=== PATIENT | male | born 1965 | race Asian ===

== ENCOUNTER → 2016-09-26 | Outpatient (CLI) | payer OTHER ==
[~2016-09-26] MED LIST: ALPR-475 PO; AMLO10TA2 PO; ASPI-621 PO; CARV25TA12 PO; FLUO20CA8 PO; FURO-93 PO; FURO80TA77 PO; GABA300C10 PO; GLIP10TA13 PO; HYDR25TA6 PO; INSU100C SQ-INSULIN; INSU100V13 SQ; INSU300I SC; ISOS10TA2 PO; ISOS30TA8 PO; LEVO50TA5 PO; METF10002 PO; METO5TAB5 PO; NITR0.4T8 SL; ROSU5TAB PO; VALS40TA2 PO
== END | disposition home or self-care (01) ==
LOC: WOUND 15:12
PROVIDERS: ATTEND Podiatrist Foot & Ankle Surgery
DX: I87.332 Chronic venous hypertension (idiopathic) with ulcer and inflammation of left lower extremity (principal); E11.622 Type 2 diabetes mellitus with other skin ulcer; L97.821 Non-pressure chronic ulcer of other part of left lower leg limited to breakdown of skin; E11.22 Type 2 diabetes mellitus with diabetic chronic kidney disease; I13.0 Hypertensive heart and chronic kidney disease with heart failure and stage 1 through stage 4 chronic kidney disease, or unspecified chronic kidney disease; N18.4 Chronic kidney disease, stage 4 (severe); I50.9 Heart failure, unspecified; E78.5 Hyperlipidemia, unspecified; E03.9 Hypothyroidism, unspecified; F41.9 Anxiety disorder, unspecified; Z72.89 Other problems related to lifestyle; Z87.891 Personal history of nicotine dependence
CPT/HCPCS: 97597; 97598

== ENCOUNTER → 2016-11-13 | Outpatient (CLI) | payer OTHER ==
[~2016-11-13] MED LIST changes: +CALC0.25 PO; +PANT40TA5 PO
== END | disposition home or self-care (01) ==
LOC: CFH 08:54
PROVIDERS: ATTEND Internal Medicine
DX: J90 Pleural effusion, not elsewhere classified (principal); I51.7 Cardiomegaly; J98.11 Atelectasis
CPT/HCPCS: 71250

== ENCOUNTER → 2017-05-15 | Outpatient (CLI) | payer OTHER ==
[~2017-05-15] MED LIST changes: +NITR0.4T28 SL; -NITR0.4T8 SL
== END | disposition home or self-care (01) ==
LOC: EDSTATUS 05-06 09:30 → RAD 08:52
PROVIDERS: ATTEND Internal Medicine Cardiovascular Disease
DX: Z01.818 Encounter for other preprocedural examination (principal); M47.894 Other spondylosis, thoracic region; N18.6 End stage renal disease
CPT/HCPCS: 71020

== ENCOUNTER → 2017-05-15 | Outpatient (CLI) | payer OTHER | END | disposition home or self-care (01) | LOC: CVU 09:29 | PROVIDERS: ATTEND Internal Medicine Nephrology | DX: Z01.818 Encounter for other preprocedural examination (principal); I31.3 Pericardial effusion (noninflammatory); I07.1 Rheumatic tricuspid insufficiency; I74.5 Embolism and thrombosis of iliac artery; I13.2 Hypertensive heart and chronic kidney disease with heart failure and with stage 5 chronic kidney disease, or end stage renal disease; N18.6 End stage renal disease; I50.9 Heart failure, unspecified; E11.22 Type 2 diabetes mellitus with diabetic chronic kidney disease; Z79.899 Other long term (current) drug therapy | CPT/HCPCS: 93306; 93922; 93925; 93978 ==

== ENCOUNTER → 2017-08-26 | Outpatient (CLI) | payer OTHER | END | disposition home or self-care (01) | LOC: CFH 11:49 | PROVIDERS: ATTEND Internal Medicine Cardiovascular Disease | DX: I25.10 Atherosclerotic heart disease of native coronary artery without angina pectoris (principal); I25.5 Ischemic cardiomyopathy | CPT/HCPCS: 78452; 93017; A9502 ==

== ENCOUNTER → 2017-10-14 | Outpatient (CLI) | payer OTHER, MEDICARE ==
[~2017-10-14] MED LIST changes: +REGADENOSON 0.4 MG/5 ML SYRINGE ONE
== END ==
LOC: CFH 08:30
PROVIDERS: ATTEND Internal Medicine Cardiovascular Disease
DX: I25.5 Ischemic cardiomyopathy (principal); I25.10 Atherosclerotic heart disease of native coronary artery without angina pectoris
CPT/HCPCS: 78452; 93017; A9502; J2785

== ENCOUNTER 2018-01-08 10:08 | Day surgery (SDC) | payer OTHER, MEDICARE ==
[2018-01-06 11:15] VITALS: BP 162/91
[2018-01-06 11:19] LABS: MD NO
[2018-01-06 11:27] LABS: BASOPHILS # (AUTO) 0.04 x10^3/uL (0-0.1); BASOPHILS % (AUTO) 1 % (0-1); EOSINOPHILS # (AUTO) 0.29 x10^3/uL (0-0.4); EOSINOPHILS % (AUTO) 4 % (1-7); LYMPHOCYTES # (AUTO) 1.51 x10^3/uL (1-3.4); LYMPHOCYTES % (AUTO) 21 % (22-44); MEAN CORPUSCULAR HEMOGLOBIN 30.5 pg (27.5-34.5); MEAN CORPUSCULAR HGB CONC 32.9 g/dL (33.2-36.2); MEAN CORPUSCULAR VOLUME 92.8 fL (81-97); MEAN PLATELET VOLUME 8.7 fL (7.4-10.4); MONOCYTES # (AUTO) 1.03 x10^3/uL (0.2-0.8); MONOCYTES % (AUTO) 14 % (2-9); NEUTROPHILS # (AUTO) 4.43 x10^3/uL (1.8-6.8); NEUTROPHILS % (AUTO) 61 % (42-75); PLATELET COUNT 201 x10^3/uL (130-400); RED BLOOD COUNT 3.79 x10^6/uL (4.38-5.82)
[2018-01-06 11:31] LABS: ANION GAP 11 mmol/L (5-15); CALCIUM 7.8 mg/dL (8.5-10.1); CHLORIDE 97 mmol/L (98-107); CREATININE 7.08 mg/dL (0.7-1.3)
[~2018-01-08] VITALS: Ht 180.3 cm; Wt 97.0 kg
[~2018-01-08 10:08] MED LIST changes: +ALBU6.7H PO; +FURO20TA3 PO; +HYDR-3342 PO; +OLME40TA12 PO; -REGADENOSON 0.4 MG/5 ML SYRINGE ONE
[2018-01-08] MEDS ORDERED: ALBU8.5H8 INH (10:59)
[2018-01-08] MEDS ORDERED: FLUT200B INH (10:59)
[2018-01-08] MEDS ORDERED: CALC ACETATE PO (11:11)
[2018-01-08] MEDS ORDERED: BIVALIRUDIN 250 MG ONE (11:22)
[2018-01-08] MEDS ORDERED: VERAPAMIL 2.5 MG/ML, 2ML ONE (11:22)
[2018-01-08] MEDS ORDERED: MIDAZOLAM 1 MG/ML, 5ML ONE (11:22)
[2018-01-08] MEDS ORDERED: TICAGRELOR 90 MG TABLET ONE (11:22)
[2018-01-08] MEDS ORDERED: FENTANYL PF 100 MCG/2ML ONE (11:22)
[2018-01-08] MEDS ORDERED: LIDOCAINE-MPF 2%, 2ML ONE (11:23)
[2018-01-08] MEDS ORDERED: ARGATROBAN/NACL 50 MG/50 ML 50 ML IV ONE (11:30)
== END 2018-01-08 15:10 | disposition home or self-care (01) ==
LOC: CACL 10:08
PROVIDERS: ATTEND Internal Medicine Cardiovascular Disease
DX: I25.119 Atherosclerotic heart disease of native coronary artery with unspecified angina pectoris (principal); E11.9 Type 2 diabetes mellitus without complications; E78.2 Mixed hyperlipidemia; G47.33 Obstructive sleep apnea (adult) (pediatric); E11.22 Type 2 diabetes mellitus with diabetic chronic kidney disease; I13.2 Hypertensive heart and chronic kidney disease with heart failure and with stage 5 chronic kidney disease, or end stage renal disease; I50.9 Heart failure, unspecified; N18.6 End stage renal disease; Z79.82 Long term (current) use of aspirin; Z79.899 Other long term (current) drug therapy; Z98.890 Other specified postprocedural states
CPT/HCPCS: 36415; 80048; 85025; 93458; 99156; C1769; C1894; J2250; J3010; J3490; Q9967; J0583

== ENCOUNTER → 2018-01-20 | Outpatient (CLI) | payer OTHER, MEDICARE ==
[~2018-01-20] MED LIST changes: +ALBU8.5H8 INH; +CALC ACETATE PO; +FLUT200B INH; +OMNIPAQUE 350 MG/ML, 100ML BOTTLE ONE
== END | disposition home or self-care (01) ==
LOC: CFH 08:48
PROVIDERS: ATTEND Family Medicine
DX: I70.1 Atherosclerosis of renal artery (principal); N18.9 Chronic kidney disease, unspecified
CPT/HCPCS: 72191; Q9967

== ENCOUNTER → 2018-06-02 | Outpatient (CLI) | payer OTHER, MEDICARE ==
[~2018-06-02] MED LIST changes: -AMLO10TA2 PO; +AMLO10TA6 PO; -ASPI-621 PO; +ASPI81TA45 PO; -OMNIPAQUE 350 MG/ML, 100ML BOTTLE ONE
[2018-06-02 13:03] LABS: INTERNATIONAL NORMALIZED RATIO 3.17 (0.93-1.1); PROTHROMBIN TIME 32.1 Seconds (9.6-11.5)
== END | disposition home or self-care (01) ==
LOC: LAB 12:36
PROVIDERS: ATTEND Internal Medicine Cardiovascular Disease
DX: I48.91 Unspecified atrial fibrillation (principal); Z79.01 Long term (current) use of anticoagulants
CPT/HCPCS: 36415; 85610

== ENCOUNTER → 2018-06-23 | Outpatient (CLI) | payer OTHER, MEDICARE ==
[~2018-06-23] MED LIST changes: -AMLO10TA6 PO; +AMLO10TA8 PO
[2018-06-23 09:51] LABS: INTERNATIONAL NORMALIZED RATIO 1.13 (0.93-1.1); PROTHROMBIN TIME 11.9 Seconds (9.6-11.5)
== END | disposition home or self-care (01) ==
LOC: LAB 09:00
PROVIDERS: ATTEND Internal Medicine Cardiovascular Disease
DX: I48.91 Unspecified atrial fibrillation (principal); Z79.01 Long term (current) use of anticoagulants
CPT/HCPCS: 36415; 85610

== ENCOUNTER → 2018-07-21 | Outpatient (CLI) | payer OTHER, MEDICARE ==
[2018-07-21 10:53] LABS: INTERNATIONAL NORMALIZED RATIO 1.14 (0.93-1.1); PROTHROMBIN TIME 11.9 Seconds (9.6-11.5)
== END | disposition home or self-care (01) ==
LOC: LAB 10:24
PROVIDERS: ATTEND Internal Medicine Cardiovascular Disease
DX: I48.91 Unspecified atrial fibrillation (principal); Z79.01 Long term (current) use of anticoagulants
CPT/HCPCS: 36415; 85610

== ENCOUNTER → 2018-07-28 | Outpatient (CLI) | payer OTHER ==
[2018-07-28 09:42] LABS: INTERNATIONAL NORMALIZED RATIO 2.12 (0.93-1.1); PROTHROMBIN TIME 21.6 Seconds (9.6-11.5)
== END | disposition home or self-care (01) ==
LOC: LAB 09:15
PROVIDERS: ATTEND Internal Medicine Cardiovascular Disease
DX: I48.91 Unspecified atrial fibrillation (principal); Z79.01 Long term (current) use of anticoagulants
CPT/HCPCS: 36415; 85610

== ENCOUNTER → 2018-08-11 | Outpatient (CLI) | payer OTHER ==
[2018-08-11 11:12] LABS: INTERNATIONAL NORMALIZED RATIO 1.45 (0.93-1.1)
== END | disposition home or self-care (01) ==
LOC: LAB 10:13
PROVIDERS: ATTEND Internal Medicine Cardiovascular Disease
DX: I48.91 Unspecified atrial fibrillation (principal); Z79.01 Long term (current) use of anticoagulants
CPT/HCPCS: 36415; 85610

== ENCOUNTER → 2018-08-14 | Outpatient (CLI) | payer OTHER ==
[2018-08-14 15:49] LABS: INTERNATIONAL NORMALIZED RATIO 1.82 (0.93-1.1); PROTHROMBIN TIME 18.7 Seconds (9.6-11.5)
== END | disposition home or self-care (01) ==
LOC: LAB 15:20
PROVIDERS: ATTEND Internal Medicine Cardiovascular Disease
DX: I48.91 Unspecified atrial fibrillation (principal); Z79.01 Long term (current) use of anticoagulants
CPT/HCPCS: 36415; 85610

== ENCOUNTER → 2018-09-03 | Outpatient (CLI) | payer OTHER ==
[2018-09-03 10:00] LABS: INTERNATIONAL NORMALIZED RATIO 1.86 (0.93-1.1); PROTHROMBIN TIME 19.1 Seconds (9.6-11.5)
== END | disposition home or self-care (01) ==
LOC: LAB 09:30
PROVIDERS: ATTEND Internal Medicine Cardiovascular Disease
DX: I48.91 Unspecified atrial fibrillation (principal); Z79.01 Long term (current) use of anticoagulants
CPT/HCPCS: 36415; 85610

== ENCOUNTER → 2018-09-17 | Outpatient (CLI) | payer OTHER ==
[2018-09-17 10:38] LABS: PROTHROMBIN TIME 30.2 Seconds (9.6-11.5)
== END | disposition home or self-care (01) ==
LOC: LAB 10:02
PROVIDERS: ATTEND Internal Medicine Cardiovascular Disease
DX: I48.91 Unspecified atrial fibrillation (principal); Z79.01 Long term (current) use of anticoagulants
CPT/HCPCS: 36415; 85610

== ENCOUNTER → 2018-10-22 | Outpatient (CLI) | payer OTHER, MEDICARE ==
[2018-10-22 10:50] LABS: INTERNATIONAL NORMALIZED RATIO 1.89 (0.93-1.1); PROTHROMBIN TIME 19.4 Seconds (9.6-11.5)
== END | disposition home or self-care (01) ==
LOC: LAB 10:24
PROVIDERS: ATTEND Internal Medicine Cardiovascular Disease
DX: I48.91 Unspecified atrial fibrillation (principal); Z79.01 Long term (current) use of anticoagulants
CPT/HCPCS: 36415; 85610

== ENCOUNTER 2019-03-20 16:32 | Emergency (ER) | payer OTHER, MEDICARE ==
[~2019-03-20] VITALS: Ht 177.8 cm; Wt 100.0 kg
[~2019-03-20 16:32] MED LIST changes: -ALBU6.7H PO; +ALBU6.7H8 PO; -ALPR-475 PO; +ALPR0.5T7 PO; +WARFARIN SODIUM PO
[2019-03-20] MEDS ORDERED: ONDANSETRON ODT 4 MG PO ONE (17:00)
[2019-03-20] MEDS ORDERED: ONDANSETRON ODT 4 MG ONE (17:03)
--- NOTE | 2019-03-20 17:09 | NUR ---
PT A&OX4, RESP EVEN & UNLABORED, SPEECH CLEAR, SKIN WNL. C/O N/V, WEAKNESS X 3 DAYS. NO MEDS TAKEN FOR SX. 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 LAST BM: TODAY. DENIES DIARRHEA. SPOUSE AT BS. LABS DRAWN. ZOFRAN GIVEN PER EMAR.
[2019-03-20 17:19] LABS: BASOPHILS # (AUTO) 0.04 x10^3/uL (0-0.1); BASOPHILS % (AUTO) 1 % (0-1); EOSINOPHILS # (AUTO) 0.19 x10^3/uL (0-0.4); EOSINOPHILS % (AUTO) 3 % (1-7); LYMPHOCYTES # (AUTO) 1.29 x10^3/uL (1-3.4); LYMPHOCYTES % (AUTO) 20 % (22-44); MD NO; MEAN CORPUSCULAR HEMOGLOBIN 30.7 pg (27.5-34.5); MEAN CORPUSCULAR HGB CONC 32.4 g/dL (33.2-36.2); MEAN CORPUSCULAR VOLUME 94.7 fL (81-97); MEAN PLATELET VOLUME 9.5 fL (7.4-10.4); MONOCYTES # (AUTO) 0.98 x10^3/uL (0.2-0.8); MONOCYTES % (AUTO) 15 % (2-9); NEUTROPHILS # (AUTO) 4.12 x10^3/uL (1.8-6.8); NEUTROPHILS % (AUTO) 62 % (42-75); PLATELET COUNT 144 x10^3/uL (130-400); RED BLOOD COUNT 3.66 x10^6/uL (4.38-5.82); RED CELL DISTRIBUTION WIDTH 15.6 % (9.4-14.8)
[2019-03-20 17:30] LABS: ALANINE AMINOTRANSFERASE 15 U/L (12-78); ANION GAP 11 mmol/L (5-15); CALCIUM 7.5 mg/dL (8.5-10.1); CHLORIDE 97 mmol/L (98-107)
[2019-03-20 17:33] LABS: ALKALINE PHOSPHATASE 159 U/L (45-117); BILIRUBIN,TOTAL 0.5 mg/dL (0.2-1.0); TOTAL PROTEIN 6.8 g/dL (6.4-8.2)
--- NOTE | 2019-03-20 17:45 | NUR ---
PT REPORT TO BREAK RN: TEAGAN Mahajan PT CARE TRANSFERRED.
[2019-03-20] MEDS ORDERED: CALC667C PO (18:11)
[2019-03-20 18:13] LABS: INTERNATIONAL NORMALIZED RATIO 1.47 (0.93-1.1); PROTHROMBIN TIME 15.2 Seconds (9.6-11.5)
[2019-03-20] MEDS ORDERED: WARF-36 PO (18:13)
[2019-03-20] MEDS ORDERED: SUCR500T PO (18:14)
[2019-03-20] MEDS ORDERED: ROSU40TA PO (18:17)
[2019-03-20 19:29] VITALS: BP 145/67
== END 2019-03-20 19:38 | disposition home or self-care (01) ==
LOC: ED 17:42
DX: R11.2 Nausea with vomiting, unspecified (principal); E11.22 Type 2 diabetes mellitus with diabetic chronic kidney disease; I13.0 Hypertensive heart and chronic kidney disease with heart failure and stage 1 through stage 4 chronic kidney disease, or unspecified chronic kidney disease; N18.9 Chronic kidney disease, unspecified; I50.9 Heart failure, unspecified; E03.9 Hypothyroidism, unspecified; I25.2 Old myocardial infarction
CPT/HCPCS: 36415; 80053; 83690; 85025; 85610; 99283; Q0162

== ENCOUNTER 2019-07-26 08:01 | Day surgery (SDC) | payer OTHER, MEDICARE ==
[~2019-07-26] VITALS: Ht 177.8 cm; Wt 107.8 kg
[~2019-07-26 08:01] MED LIST changes: +BUPIVACAINE/PF 0.5% ONE; +CALC667C PO; +EPINEPHRINE 1 MG/ML, 1ML ONE; +FLUO20CA23 PO; -FLUO20CA8 PO; +GUAI200T37 PO; +ONDA4TAB7 PO; +OSEL30CA2 PO; +PRED10TA14 PO; +ROSU40TA PO; +SUCR500T PO; +WARF-36 PO
[2019-07-26] MEDS ORDERED: SODIUM CHLORIDE 0.9% 1,000 ML IV SCH (08:24)
[2019-07-26] MEDS ORDERED: FENTANYL PF 100 MCG/2ML ONE ×2 (08:24→11:45)
[2019-07-26] MEDS ORDERED: MIDAZOLAM 1 MG/ML, 2ML ONE (08:24)
[2019-07-26] MEDS ORDERED: GLYCOPYRROLATE 0.2MG/1ML, 5ML ONE (08:42)
[2019-07-26] MEDS ORDERED: SUCCINYLCHOLINE 20 MG/ML, 10ML ONE (08:42)
[2019-07-26] MEDS ORDERED: ROCURONIUM 10MG/ML,5ML ONE (08:42)
[2019-07-26] MEDS ORDERED: PROPOFOL 10 MG/ML, 20ML ONE (08:42)
[2019-07-26] MEDS ORDERED: NEOSTIGMINE 1 MG/ML, 10ML ONE (08:42)
[2019-07-26] MEDS ORDERED: ONDANSETRON 2MG/ML, 2ML ONE (08:42)
[2019-07-26] MEDS ORDERED: CEFAZOLIN 1,000 MG ONE (08:42)
[2019-07-26] MEDS ORDERED: DEXAMETHASONE 4 MG/ML, 1ML ONE (08:42)
[2019-07-26 08:51] VITALS: BP 149/78
[2019-07-26] MEDS ORDERED: PLEASE ENTER HEIGHT AND WEIGHT MC SCH (09:00)
[2019-07-26 09:37] LABS: ALANINE AMINOTRANSFERASE 23 U/L (12-78); ALBUMIN 3.8 g/dL (3.4-5.0); ANION GAP 8 mmol/L (5-15); CALCIUM 9.2 mg/dL (8.5-10.1); CHLORIDE 98 mmol/L (98-107); CREATININE 8.02 mg/dL (0.7-1.3)
[2019-07-26 09:39] LABS: ALKALINE PHOSPHATASE 263 U/L (45-117); BILIRUBIN,TOTAL 0.9 mg/dL (0.2-1.0); TOTAL PROTEIN 8.3 g/dL (6.4-8.2)
[2019-07-26] MEDS ORDERED: LIDOCAINE 2% 100MG/5ML SYRINGE ONE (10:34)
[2019-07-26] MEDS ORDERED: ACETAMINOPHEN 325 MG TABLET PO PRN (11:00)
[2019-07-26] MEDS ORDERED: HYDROmorphone 2 MG/ML, 1ML IVPush PRN (11:00)
[2019-07-26] MEDS ORDERED: ONDANSETRON 2MG/ML, 2ML IV PRN (11:00)
[2019-07-26] MEDS ORDERED: PROMETHAZINE 25 MG/ML, 1ML IV PRN (11:00)
[2019-07-26] MEDS ORDERED: PROMETHAZINE 25 MG SUPP PR PRN (11:00)
[2019-07-26] MEDS ORDERED: ONDANSETRON ODT 8 MG PO PRN (11:00)
[2019-07-26] MEDS ORDERED: hydrALAzine 20 MG/ML, 1ML IV PRN (11:00)
[2019-07-26] MEDS ORDERED: OXYcodone 5 MG/5 ML ORAL.SOL UDC PO PRN (11:00)
[2019-07-26] MEDS ORDERED: NALOXONE 0.4 MG/ML, 1ML ONE (11:16)
[2019-07-26] MEDS ORDERED: ACETAMINOPHEN 650 MG/20.3 ML UDC ONE (11:45)
[2019-07-26] MEDS: FENTANYL PF 100 MCG/2ML IV PRN ×2 (11:53→12:07)
[2019-07-26] MEDS ORDERED: hydrALAzine 20 MG/ML, 1ML ONE (11:55)
[2019-07-26] MEDS ORDERED: OXYcodone 5 MG/5 ML ORAL.SOL UDC ONE (11:55)
== END 2019-07-26 15:35 | disposition home or self-care (01) ==
LOC: OUT 08:01
PROVIDERS: ATTEND Surgery Vascular Surgery
DX: T85.611A Breakdown (mechanical) of intraperitoneal dialysis catheter, initial encounter (principal); I13.2 Hypertensive heart and chronic kidney disease with heart failure and with stage 5 chronic kidney disease, or end stage renal disease; E11.22 Type 2 diabetes mellitus with diabetic chronic kidney disease; N18.6 End stage renal disease; I50.9 Heart failure, unspecified; Z88.8 Allergy status to other drugs, medicaments and biological substances; Z87.891 Personal history of nicotine dependence; Z79.899 Other long term (current) drug therapy; Z79.01 Long term (current) use of anticoagulants; Z99.2 Dependence on renal dialysis
CPT/HCPCS: 36415; 49422; 80053; J0171; J0330; J0360; J0690; J1100; J2250; J2310; J2405; J2704; J3010; J7030; J2710

== ENCOUNTER 2019-10-26 13:22 | Outpatient (CLI) | payer OTHER, MEDICARE ==
[~2019-10-26 13:22] MED LIST changes: -BUPIVACAINE/PF 0.5% ONE; -EPINEPHRINE 1 MG/ML, 1ML ONE
== END 2019-10-26 23:59 | disposition home or self-care (01) ==
LOC: CVU 13:22
PROVIDERS: ATTEND Internal Medicine Cardiovascular Disease
DX: I08.8 Other rheumatic multiple valve diseases (principal); I31.3 Pericardial effusion (noninflammatory); J90 Pleural effusion, not elsewhere classified; N18.9 Chronic kidney disease, unspecified; E11.9 Type 2 diabetes mellitus without complications; I50.22 Chronic systolic (congestive) heart failure; Z99.2 Dependence on renal dialysis
CPT/HCPCS: 93306

== ENCOUNTER 2020-01-11 19:22 | Emergency (ER) | payer OTHER, MEDICARE ==
[~2020-01-11] VITALS: Ht 177.8 cm; Wt 105.6 kg
[2020-01-11 19:24] VITALS: BP 158/78
--- NOTE | 2020-01-11 20:07 | NUR ---
Left 2nd toe wound cleansed with iodine/saline. then wound (blood blister) lanced by provider then triple abx applied followed by bandaids. Provided with wound care supplies for home as well as instructions on what to watch for
== END 2020-01-11 20:09 | disposition home or self-care (01) ==
LOC: ED 20:07
DX: M79.672 Pain in left foot (principal); E11.9 Type 2 diabetes mellitus without complications; I25.2 Old myocardial infarction; I25.10 Atherosclerotic heart disease of native coronary artery without angina pectoris; I50.9 Heart failure, unspecified; E03.9 Hypothyroidism, unspecified; Z86.39 Personal history of other endocrine, nutritional and metabolic disease
CPT/HCPCS: 10060; 99283

== ENCOUNTER 2020-03-30 13:00 | Emergency (ER) | payer MEDICARE, OTHER ==
[~2020-03-30] VITALS: Ht 177.8 cm; Wt 110.5 kg
[~2020-03-30 13:00] MED LIST changes: +AMLO-211 PO; -AMLO10TA8 PO; -PANT40TA5 PO; +PANT40TA6 PO
[2020-03-30 15:28] LABS: BASOPHILS % (AUTO) 1 % (0-1); EOSINOPHILS % (AUTO) 12 % (1-7); LYMPHOCYTES % (AUTO) 19 % (22-44); MEAN CORPUSCULAR HEMOGLOBIN 29.9 pg (27.5-34.5); MEAN CORPUSCULAR HGB CONC 32.5 g/dL (33.2-36.2); MEAN PLATELET VOLUME 9.3 fL (7.4-10.4); MONOCYTES % (AUTO) 12 % (2-9); NEUTROPHILS % (AUTO) 56 % (42-75); PLATELET COUNT 163 x10^3/uL (130-400); RED BLOOD COUNT 3.37 x10^6/uL (4.38-5.82); RED CELL DISTRIBUTION WIDTH 16.2 % (9.4-14.8)
[2020-03-30 15:35] LABS: ALBUMIN 3.7 g/dL (3.4-5.0); ANION GAP 5 mmol/L (5-15); CALCIUM 8.8 mg/dL (8.5-10.1); CHLORIDE 100 mmol/L (98-107); CREATININE 5.63 mg/dL (0.7-1.3)
[2020-03-30 15:51] LABS: ALANINE AMINOTRANSFERASE 16 U/L (12-78); ALKALINE PHOSPHATASE 233 U/L (45-117); BILIRUBIN,TOTAL 0.6 mg/dL (0.2-1.0); TOTAL PROTEIN 8.4 g/dL (6.4-8.2)
[2020-03-30 15:58] LABS: MD SCAN
--- NOTE | 2020-03-30 17:31 | NUR ---
PT AMBULATED BACK TO ROOM WITH . PT RESTING ON GURNEY, NO COMPLAINTS AT THIS TIME. BLANKET OFFERED. PT ON CONTINUOUS PULSE OX AND CARDIAC MONITORING.
--- NOTE | 2020-03-30 18:54 | NUR ---
REPORT GIVEN TO HARSHAD BARRIOS.
--- NOTE | 2020-03-30 18:59 | NUR ---
Pt traveled to IR with tech
[2020-03-30 20:32] VITALS: BP 159/67
--- NOTE | 2020-03-30 20:34 | NUR ---
D/c instructions discussed with pt and spouse. Verbalize understanding. State pt will be attending dialysis tomorrow, will f/u with renal team and will return to ED with worsening sx. Ambulating at baseline, steady gait
== END 2020-03-30 20:34 | disposition home or self-care (01) ==
LOC: ED 17:54
DX: I13.10 Hypertensive heart and chronic kidney disease without heart failure, with stage 1 through stage 4 chronic kidney disease, or unspecified chronic kidney disease (principal); E11.22 Type 2 diabetes mellitus with diabetic chronic kidney disease; N18.9 Chronic kidney disease, unspecified; R18.8 Other ascites; R07.89 Other chest pain; I25.2 Old myocardial infarction; I25.10 Atherosclerotic heart disease of native coronary artery without angina pectoris; Z99.2 Dependence on renal dialysis
CPT/HCPCS: 36415; 49083; 71045; 80053; 83880; 85025; 88112; 88305; 93005; 99285

== ENCOUNTER → 2020-06-08 | Outpatient (CLI) | payer MEDICARE, OTHER ==
[2020-06-08 14:56] LABS: BASOPHILS % (AUTO) 1 % (0-1); EOSINOPHILS % (AUTO) 5 % (1-7); LYMPHOCYTES % (AUTO) 19 % (22-44); MEAN CORPUSCULAR HEMOGLOBIN 30.2 pg (27.5-34.5); MEAN CORPUSCULAR HGB CONC 32.5 g/dL (33.2-36.2); MEAN PLATELET VOLUME 8.7 fL (7.4-10.4); MONOCYTES % (AUTO) 12 % (2-9); NEUTROPHILS % (AUTO) 64 % (42-75); PLATELET COUNT 147 x10^3/uL (130-400); RED BLOOD COUNT 3.37 x10^6/uL (4.38-5.82); RED CELL DISTRIBUTION WIDTH 14.7 % (9.4-14.8)
[2020-06-08 15:02] LABS: MD NO
[2020-06-08 15:07] LABS: ALANINE AMINOTRANSFERASE 20 U/L (12-78); ALBUMIN 3.7 g/dL (3.4-5.0); ANION GAP 8 mmol/L (5-15); CALCIUM 9.3 mg/dL (8.5-10.1); CHLORIDE 99 mmol/L (98-107); CREATININE 5.14 mg/dL (0.7-1.3)
[2020-06-08 15:09] LABS: ALKALINE PHOSPHATASE 210 U/L (45-117); BILIRUBIN,TOTAL 0.7 mg/dL (0.2-1.0); TOTAL PROTEIN 8.3 g/dL (6.4-8.2)
== END | disposition home or self-care (01) ==
LOC: RAD 14:01
PROVIDERS: ATTEND Internal Medicine Geriatric Medicine
DX: R18.8 Other ascites (principal)
CPT/HCPCS: 36415; 80053; 85025

== ENCOUNTER 2020-06-09 08:40 | Outpatient (CLI) | payer OTHER, MEDICARE ==
[2020-06-09] MEDS ORDERED: LIDOCAINE 1%, 10ML ONE (09:16)
== END 2020-06-09 23:59 | disposition home or self-care (01) ==
LOC: RAD 08:40
PROVIDERS: ATTEND Internal Medicine Geriatric Medicine
DX: R18.8 Other ascites (principal); E11.22 Type 2 diabetes mellitus with diabetic chronic kidney disease; I12.0 Hypertensive chronic kidney disease with stage 5 chronic kidney disease or end stage renal disease; N18.6 End stage renal disease; E78.5 Hyperlipidemia, unspecified; E66.9 Obesity, unspecified; Z68.34 Body mass index [BMI] 34.0-34.9, adult; Z79.890 Hormone replacement therapy; Z79.899 Other long term (current) drug therapy; Z83.3 Family history of diabetes mellitus; Z82.49 Family history of ischemic heart disease and other diseases of the circulatory system; Z84.1 Family history of disorders of kidney and ureter; Z82.3 Family history of stroke
CPT/HCPCS: 49083; 82042; 82150; 84157; 89051; J3490

== ENCOUNTER 2020-07-06 08:57 | Outpatient (CLI) | payer OTHER, MEDICARE ==
[2020-07-06] MEDS ORDERED: LIDOCAINE 1%, 10ML ONE (09:45)
== END 2020-07-06 23:59 | disposition home or self-care (01) ==
LOC: RAD 08:57
PROVIDERS: ATTEND Internal Medicine Geriatric Medicine
DX: R18.8 Other ascites (principal); I12.0 Hypertensive chronic kidney disease with stage 5 chronic kidney disease or end stage renal disease; N18.6 End stage renal disease; E78.5 Hyperlipidemia, unspecified; E66.9 Obesity, unspecified; Z88.8 Allergy status to other drugs, medicaments and biological substances; Z99.2 Dependence on renal dialysis; Z79.82 Long term (current) use of aspirin; Z79.899 Other long term (current) drug therapy; Z72.89 Other problems related to lifestyle; Z98.890 Other specified postprocedural states; Z68.30 Body mass index [BMI] 30.0-30.9, adult; Z82.49 Family history of ischemic heart disease and other diseases of the circulatory system; Z83.3 Family history of diabetes mellitus
CPT/HCPCS: 49083; 87015; 87070; 87075; 87116; 87205; 87206; 88112; 88305; 88341; 88342; J3490

== ENCOUNTER → 2020-07-06 | Outpatient (CLI) | payer OTHER, MEDICARE | END | disposition home or self-care (01) | LOC: LAB 10:42 | PROVIDERS: ATTEND Urology | DX: Z12.5 Encounter for screening for malignant neoplasm of prostate (principal) | CPT/HCPCS: 36415; 84153; G0103 ==

== ENCOUNTER → 2020-08-01 | Outpatient (CLI) | payer OTHER, MEDICARE ==
[~2020-08-01] MED LIST changes: +LIDOCAINE 1%, 10ML ONE
== END | disposition home or self-care (01) ==
LOC: RAD 10:15
PROVIDERS: ATTEND Internal Medicine Geriatric Medicine
DX: R18.8 Other ascites (principal); N18.6 End stage renal disease; I13.2 Hypertensive heart and chronic kidney disease with heart failure and with stage 5 chronic kidney disease, or end stage renal disease; E11.22 Type 2 diabetes mellitus with diabetic chronic kidney disease; E78.5 Hyperlipidemia, unspecified; Z98.890 Other specified postprocedural states; E66.9 Obesity, unspecified; Z68.33 Body mass index [BMI] 33.0-33.9, adult; Z88.8 Allergy status to other drugs, medicaments and biological substances; Z79.899 Other long term (current) drug therapy; Z99.2 Dependence on renal dialysis; Z79.82 Long term (current) use of aspirin; Z72.89 Other problems related to lifestyle
CPT/HCPCS: 36415; 49083; 86480; 87015; 87070; 87116; 87205; 87206; 88112; 88305; J3490

== ENCOUNTER 2020-08-03 14:16 | Outpatient (CLI) | payer OTHER, MEDICARE ==
[~2020-08-03 14:16] MED LIST changes: -LIDOCAINE 1%, 10ML ONE
== END 2020-08-03 23:59 | disposition home or self-care (01) ==
LOC: CVU 14:16 → RAD 23:59
PROVIDERS: ATTEND Internal Medicine Geriatric Medicine
DX: I08.8 Other rheumatic multiple valve diseases (principal); I11.9 Hypertensive heart disease without heart failure; E78.5 Hyperlipidemia, unspecified; I12.9 Hypertensive chronic kidney disease with stage 1 through stage 4 chronic kidney disease, or unspecified chronic kidney disease; N18.6 End stage renal disease; Z87.891 Personal history of nicotine dependence
CPT/HCPCS: 71046; 93306

== ENCOUNTER → 2020-11-07 | Outpatient (CLI) | payer MEDICARE, OTHER | END | disposition home or self-care (01) | LOC: WOUND 12:28 | PROVIDERS: ATTEND Nurse Practitioner Family | DX: E11.622 Type 2 diabetes mellitus with other skin ulcer (principal); L89.96 Pressure-induced deep tissue damage of unspecified site; L97.811 Non-pressure chronic ulcer of other part of right lower leg limited to breakdown of skin; E11.621 Type 2 diabetes mellitus with foot ulcer; L97.511 Non-pressure chronic ulcer of other part of right foot limited to breakdown of skin; S80.821A Blister (nonthermal), right lower leg, initial encounter; H91.92 Unspecified hearing loss, left ear; R26.9 Unspecified abnormalities of gait and mobility; E03.9 Hypothyroidism, unspecified; F41.9 Anxiety disorder, unspecified; E11.40 Type 2 diabetes mellitus with diabetic neuropathy, unspecified; I25.10 Atherosclerotic heart disease of native coronary artery without angina pectoris; E11.22 Type 2 diabetes mellitus with diabetic chronic kidney disease; I13.2 Hypertensive heart and chronic kidney disease with heart failure and with stage 5 chronic kidney disease, or end stage renal disease; I50.42 Chronic combined systolic (congestive) and diastolic (congestive) heart failure; N18.6 End stage renal disease; E78.2 Mixed hyperlipidemia; I48.0 Paroxysmal atrial fibrillation; Z99.2 Dependence on renal dialysis; Z79.4 Long term (current) use of insulin; Z87.891 Personal history of nicotine dependence; Z79.82 Long term (current) use of aspirin; X58.XXXA Exposure to other specified factors, initial encounter; Y92.89 Other specified places as the place of occurrence of the external cause; Y99.8 Other external cause status; Y93.89 Activity, other specified | CPT/HCPCS: G0463 ==

== ENCOUNTER → 2020-11-14 | Outpatient (CLI) | payer MEDICARE, OTHER ==
[~2020-11-14] MED LIST changes: +LIDOCAINE-MPF 1%, 5ML ONE
== END | disposition home or self-care (01) ==
LOC: RAD 12:31
PROVIDERS: ATTEND Internal Medicine Nephrology
DX: R18.8 Other ascites (principal); Z99.2 Dependence on renal dialysis; Z79.82 Long term (current) use of aspirin; Z88.8 Allergy status to other drugs, medicaments and biological substances; Z79.01 Long term (current) use of anticoagulants; Z72.89 Other problems related to lifestyle
CPT/HCPCS: 49083

== ENCOUNTER → 2020-11-21 | Outpatient (CLI) | payer MEDICARE, OTHER ==
[~2020-11-21] MED LIST changes: -LIDOCAINE-MPF 1%, 5ML ONE
== END | disposition home or self-care (01) ==
LOC: WOUND 10:44
PROVIDERS: ATTEND Internal Medicine Infectious Disease
DX: E11.622 Type 2 diabetes mellitus with other skin ulcer (principal); L89.96 Pressure-induced deep tissue damage of unspecified site; L97.811 Non-pressure chronic ulcer of other part of right lower leg limited to breakdown of skin; E11.621 Type 2 diabetes mellitus with foot ulcer; L97.511 Non-pressure chronic ulcer of other part of right foot limited to breakdown of skin; S80.821D Blister (nonthermal), right lower leg, subsequent encounter; H91.92 Unspecified hearing loss, left ear; R26.9 Unspecified abnormalities of gait and mobility; E03.9 Hypothyroidism, unspecified; F41.9 Anxiety disorder, unspecified; E11.40 Type 2 diabetes mellitus with diabetic neuropathy, unspecified; I25.10 Atherosclerotic heart disease of native coronary artery without angina pectoris; E11.22 Type 2 diabetes mellitus with diabetic chronic kidney disease; I13.2 Hypertensive heart and chronic kidney disease with heart failure and with stage 5 chronic kidney disease, or end stage renal disease; I50.42 Chronic combined systolic (congestive) and diastolic (congestive) heart failure; N18.6 End stage renal disease; E78.2 Mixed hyperlipidemia; I48.0 Paroxysmal atrial fibrillation; Z99.2 Dependence on renal dialysis; Z79.4 Long term (current) use of insulin; Z87.891 Personal history of nicotine dependence; Z79.82 Long term (current) use of aspirin; X58.XXXD Exposure to other specified factors, subsequent encounter; Z88.8 Allergy status to other drugs, medicaments and biological substances
CPT/HCPCS: G0463

== ENCOUNTER 2021-01-11 11:25 | Outpatient (CLI) | payer MEDICARE, OTHER ==
[2021-01-11] MEDS ORDERED: LIDOCAINE 1%, 10ML ONE (11:36)
== END 2021-01-11 23:59 | disposition home or self-care (01) ==
LOC: RAD 11:25
PROVIDERS: ATTEND Internal Medicine Nephrology
DX: R18.8 Other ascites (principal); R14.0 Abdominal distension (gaseous); Z79.82 Long term (current) use of aspirin; Z79.899 Other long term (current) drug therapy; Z88.8 Allergy status to other drugs, medicaments and biological substances; Z79.01 Long term (current) use of anticoagulants
CPT/HCPCS: 49083